=== PATIENT | male | born 1985 | race Hispanic/Latino ===

== ENCOUNTER 2022-01-09 08:29 | Emergency (ER) | payer OTHER ==
[~2022-01-09] VITALS: Ht 172.7 cm; Wt 81.0 kg
[2022-01-09] MEDS ORDERED: KEFLEX500 MG PO (10:20)
[2022-01-09] MEDS ORDERED: HYDROCO/APAP1 TA9 PO (10:20)
[2022-01-09 11:30] VITALS: BP 128/84
== END 2022-01-09 11:30 | disposition home or self-care (01) | DRG 563 ==
LOC: ED 08:29
PROC: 2W3KX1Z Immobilization of Left Finger using Splint (ICD-10-PCS; principal; 2022-01-09)
DX: S62.663B Nondisplaced fracture of distal phalanx of left middle finger, initial encounter for open fracture (principal); F17.210 Nicotine dependence, cigarettes, uncomplicated; W23.0XXA Caught, crushed, jammed, or pinched between moving objects, initial encounter; Y92.89 Other specified places as the place of occurrence of the external cause; Y99.0 Civilian activity done for income or pay